=== PATIENT | female | born 1970 | race African-American/Black ===

== ENCOUNTER 2019-11-06 19:20 | Emergency (ER) | payer OTHER ==
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
[2019-11-06] MEDS ORDERED: HYDROCODONE/ACETAMINOPHEN 5-325 MG TABLET PO ONE (20:45)
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
[2019-11-06] MEDS ORDERED: CYCLOBENZAPRINE HCL 10 MG TABLET PO ONE (21:00)
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
[2019-11-06 23:06] VITALS: BP 174/82
== END 2019-11-06 23:06 | disposition home or self-care (01) ==
LOC: ER 19:20
DX: M17.11 Unilateral primary osteoarthritis, right knee (principal); M79.631 Pain in right forearm; M54.2 Cervicalgia; M25.531 Pain in right wrist; R51 Headache; R42 Dizziness and giddiness; M25.561 Pain in right knee; M79.604 Pain in right leg; M79.642 Pain in left hand; V87.7XXA Person injured in collision between other specified motor vehicles (traffic), initial encounter; Z88.8 Allergy status to other drugs, medicaments and biological substances; I10 Essential (primary) hypertension
CPT/HCPCS: 70450; 72125; 99284